=== PATIENT | female | born 1995 | race Caucasian/White ===

== ENCOUNTER 2022-03-22 22:32 | Outpatient (CLI) | payer OTHER, BC | END 2022-03-23 00:17 | disposition home or self-care (01) | LOC: GENOP 22:32 | DX: O47.03 False labor before 37 completed weeks of gestation, third trimester (principal); Z3A.34 34 weeks gestation of pregnancy | CPT/HCPCS: 81001; G0463 ==

== ENCOUNTER 2022-04-03 11:47 | Inpatient (IN) | payer BC, OTHER ==
[2022-04-03] MEDS ORDERED: VITAMIN B12-FO1 EACH PO (14:01)
[2022-04-03] MEDS ORDERED: PRENATAL TABLE1 EAC6 PO (14:01)
[2022-04-03] MEDS ORDERED: VITAMIN C100 MG PO (14:03)
[2022-04-03 14:29] LABS: HEMOGLOBIN 9.2 gm/dl (12.3-15.3); RED BLOOD COUNT 3.61 M/UL (4.00-5.10); WHITE BLOOD COUNT 6.7 K/UL (4.5-11.0)
[2022-04-04] MEDS ORDERED: DOCUSATE SODIU250 MG PO (07:55)
[2022-04-04] MEDS ORDERED: IBUPROFEN600 MG PO (07:55)
[2022-04-05 04:40] LABS: HEMOGLOBIN 7.5 gm/dl (12.3-15.3)
[2022-04-06] MEDS ORDERED: HEMOCYTE324 MG PO (12:24)
== END 2022-04-06 14:55 | disposition home or self-care (01) | DRG 807 ==
LOC: GENOP 11:47 → OB 13:12
PROVIDERS: ADMIT Obstetrics & Gynecology
PROC: 10E0XZZ Delivery of Products of Conception, External Approach (ICD-10-PCS; principal; 2022-04-04)
PROC: 3E033VJ Introduction of Other Hormone into Peripheral Vein, Percutaneous Approach (ICD-10-PCS; 2022-04-04)
PROC: 4A1H7CZ Monitoring of Products of Conception, Cardiac Rate, Via Natural or Artificial Opening (ICD-10-PCS; 2022-04-04)
PROC: 10H073Z Insertion of Monitoring Electrode into Products of Conception, Via Natural or Artificial Opening (ICD-10-PCS; 2022-04-04)
PROC: 10H07YZ Insertion of Other Device into Products of Conception, Via Natural or Artificial Opening (ICD-10-PCS; 2022-04-04)
DX: O42.90 Premature rupture of membranes, unspecified as to length of time between rupture and onset of labor, unspecified weeks of gestation (principal); Z37.0 Single live birth; O99.02 Anemia complicating childbirth; Z20.822 Contact with and (suspected) exposure to COVID-19; O99.892 Other specified diseases and conditions complicating childbirth; M54.9 Dorsalgia, unspecified; G89.29 Other chronic pain; N92.0 Excessive and frequent menstruation with regular cycle; G47.00 Insomnia, unspecified; E78.5 Hyperlipidemia, unspecified; E55.9 Vitamin D deficiency, unspecified; R13.10 Dysphagia, unspecified; D64.9 Anemia, unspecified; Z3A.35 35 weeks gestation of pregnancy; Z91.041 Radiographic dye allergy status; Z83.3 Family history of diabetes mellitus; Z98.890 Other specified postprocedural states
CPT/HCPCS: 36415; 81001; 82800; 83518; 85014; 85018; 85025; J0595; J2210; J2405; J2590; J7120